=== PATIENT | male | born 1935 | race Caucasian/White ===

== ENCOUNTER 2023-01-13 16:54 | Emergency (ER) | payer OTHER ==
[~2023-01-13] VITALS: Ht 167.6 cm; Wt 72.6 kg
[2023-01-13 17:14] VITALS: BP_SYST 140; PULSE 75; RESP 20; TEMP 98.3; O2SAT 98
[2023-01-13 22:21] VITALS: BP_SYST 131; PULSE 82; RESP 18; TEMP 97.7; O2SAT 98
== END 2023-01-13 22:10 | disposition home or self-care (01) ==
LOC: SED 16:54
DX: S40.012A Contusion of left shoulder, initial encounter (principal); S80.02XA Contusion of left knee, initial encounter; S70.01XA Contusion of right hip, initial encounter; Z79.899 Other long term (current) drug therapy; W01.0XXA Fall on same level from slipping, tripping and stumbling without subsequent striking against object, initial encounter; Y93.89 Activity, other specified; Y92.89 Other specified places as the place of occurrence of the external cause; Y99.8 Other external cause status
CPT/HCPCS: 72170-TC; 73030; 73560-TC; 99284